=== PATIENT | male | born 1970 | race American Indian/Alaskan Native ===

== ENCOUNTER 2017-03-14 13:54 | Emergency (ER) | payer MEDICAID ==
[2017-03-14 14:05] VITALS: RESP 18
[2017-03-14] MEDS ORDERED: Sodium Chloride 0.9% 1,000 ML IV STA (14:29)
--- NOTE | 2017-03-14 14:49 | ED PDOC ---
HPI: Abdomen Time Seen by Provider: 03/14/17 14:19 Chief Complaint (Nursing): Abdominal Pain History Per: Patient (Sharp LUQ abd pain assoc with vomiting this AM.Feels better after vomiting. no diarrhea or fever.) Onset/Duration Of Symptoms: Days (1) Current Symptoms Are (Timing): Better Severity: Mild Pain Scale Rating Of: 2 Location Of Pain/Discomfort: Epigastric, LUQ Quality Of Discomfort: Sharp Associated Symptoms: Nausea, Vomiting Past Medical History Vital Signs: Last Vital Signs Temp 99.0 F 03/14/17 14:03 Pulse 77 03/14/17 14:03 Resp 18 03/14/17 14:03 BP 121/75 03/14/17 14:03 Pulse Ox 99 03/14/17 14:49 - Medical History PMH: No Chronic Diseases Denies: Chronic Kidney Disease - Family History Family History: States: Unknown Family Hx - Immunization History Hx Tetanus Toxoid Vaccination: Yes Hx Influenza Vaccination: No Hx Pneumococcal Vaccination: No - Home Medications Home Medications: Ambulatory Orders Medication Instructions Recorded No Known Home Med 03/14/17 - Allergies Allergies/Adverse Reactions: Allergies Allergy/AdvReac Type Severity Reaction Status Date / Time No Known Allergies Allergy Verified 03/14/17 12:45 Review of Systems ROS Statement: Except As Marked, All Systems Reviewed And Found Negative Gastrointestinal: Positive for: Nausea, Vomiting, Abdominal Pain Physical Exam - Reviewed Nursing Documentation Reviewed: Yes Vital Signs Reviewed: Yes - Physical Exam Appears: Positive for: Non-toxic, No Acute Distress Head Exam: Positive for: ATRAUMATIC, NORMAL INSPECTION, NORMOCEPHALIC Skin: Positive for: Normal Color, Warm, DRY Eye Exam: Positive for: EOMI, Normal appearance, PERRL ENT: Positive for: Normal ENT Inspection Neck: Positive for: Normal, Painless ROM Cardiovascular/Chest: Positive for: Regular Rate, Rhythm Respiratory: Positive for: CNT, Normal Breath Sounds Gastrointestinal/Abdominal: Positive for: Bowel Sounds, Soft, Tenderness (Mild LUQ) Back: Positive for: Normal Inspection Extremity: Positive for: Normal ROM Neurologic/Psych: Positive for: Alert, Oriented - Laboratory Results Result Diagrams: 03/14/17 15:14 03/14/17 15:14 - ECG O2 Sat by Pulse Oximetry: 99 Disposition - Clinical Impression Clinical Impression: Abdominal pain - Patient ED Disposition Is Patient to be Admitted: Transfer of Care - Disposition Disposition: Transfer of Care Disposition Time: 16:58 Condition: FAIR Forms: [facility] (Icelandic) Patient Signed Over To: Jerry Duval
[2017-03-14 15:19] LABS: BASO % 0.3 % (0.0-2.0); EOS % 0.2 % (0.0-4.0); HEMATOCRIT 42.9 % (35.0-51.0); LYMPH # 1.2 K/uL (1.0-4.3); MEAN CELL VOLUME 91.3 fl (80.0-94.0); MEAN CORPUSCULAR HEMOGLOBIN 30.4 pg (27.0-31.0); MEAN CORPUSCULAR HGB CONC 33.3 g/dL (33.0-37.0); MEAN PLATELET VOLUME 8.1 fl (7.2-11.7); MONO # 1.1 K/uL (0.0-0.8); NEUT # 13.2 K/uL (1.8-7.0); NEUT % 84.5 % (50.0-75.0); PLATELET COUNT 260 K/uL (130-400); RED CELL DISTRIBUTION WIDTH 13.3 % (11.5-14.5); WHITE BLOOD COUNT 15.6 K/uL (4.8-10.8)
[2017-03-14 15:38] LABS: ALB/GLOB RATIO 1.3 (1.0-2.1); ALKALINE PHOSPHATASE 72 U/L (38-126); ALT/SGPT 28 U/L (21-72); AST/SGOT 36 U/L (17-59); BILIRUBIN,TOTAL 1.4 mg/dl (0.2-1.3); BLOOD UREA NITROGEN 16 mg/dl (9-20); CALCIUM 9.7 mg/dL (8.4-10.2); CARBON DIOXIDE 24 mmol/L (22-30); CHLORIDE 103 mmol/L (98-107); GFR AFRICAN-AMERICAN > 60; GLUCOSE,RANDOM 81 mg/dL (75-110); POTASSIUM 4.1 MMOL/L (3.6-5.0); SODIUM 141 mmol/l (132-148); TOTAL PROTEIN 8.4 G/DL (6.3-8.2)
[2017-03-14 15:53] LABS: NEUTROPHIL 89 % (42-75); TOTAL CELLS COUNTED 100
--- NOTE | 2017-03-14 17:05 | ED PDOC ---
- Laboratory Results Result Diagrams: 03/14/17 15:14 03/14/17 15:14 Interpretation Of Abn Labs: 15.6 wbc - ECG O2 Sat by Pulse Oximetry: 99 Pulse Ox Interpretation: Normal - Progress ED Course And Treament: 171: Stable. Pain free. States he feels great. Tolerated PO. Has had similar multiple times in the past. Sees [facility] and was advised to fu with GI. Disposition - Clinical Impression Clinical Impression: Abdominal pain - POA Present On Arrival: None - Disposition Referrals: Sotrm Enriquez MD [Staff Provider] - 03/15/17 Disposition: Routine/Home Disposition Time: 17:13 Condition: FAIR Additional Instructions: Return if not better in 3 days. Instructions: Acute Abdominal Pain (ED) Forms: [facility] (Telugu)
[2017-03-14 17:21] VITALS: BP 122/81; PULSE 70; TEMP 98; O2SAT 100
== END 2017-03-14 17:43 | disposition home or self-care (01) ==
LOC: H.ER 13:54
DX: R10.12 Left upper quadrant pain (principal)
CPT/HCPCS: 80053; 83690; 85025; 96374; 96375; 99282; J2405; J7040